=== PATIENT | male | born 1960 | race Caucasian/White ===

== ENCOUNTER 2017-12-01 09:37 | Emergency (ER) | payer MEDICAID ==
[~2017-12-01] VITALS: Ht 170.2 cm; Wt 71.7 kg
[~2017-12-01 09:37] MED LIST: LOPE1TAB46 PO; NAPR-706 PO
[2017-12-01] MEDS ORDERED: PENI250T2 PO (10:05)
[2017-12-01] MEDS ORDERED: HYDR-569 PO (10:05)
[2017-12-01 10:09] VITALS: BP 141/83
== END 2017-12-01 10:10 | disposition home or self-care (01) ==
LOC: ER 09:37
DX: K13.70 Unspecified lesions of oral mucosa (principal); K08.89 Other specified disorders of teeth and supporting structures; G89.29 Other chronic pain; F12.90 Cannabis use, unspecified, uncomplicated; Z59.0 Homelessness; Z56.0 Unemployment, unspecified; Z79.899 Other long term (current) drug therapy
CPT/HCPCS: 99283

== ENCOUNTER 2018-01-16 11:28 | Emergency (ER) | payer MEDICAID ==
[~2018-01-16] VITALS: Ht 170.2 cm; Wt 72.0 kg
[~2018-01-16 11:28] MED LIST changes: +HYDR-569 PO
[2018-01-16 11:37] VITALS: BP 135/88
[2018-01-16] MEDS ORDERED: HYDR-565 PO (13:41)
[2018-01-16] MEDS ORDERED: PENI500T2 PO (13:41)
== END 2018-01-16 13:49 | disposition home or self-care (01) ==
LOC: ER 11:29
DX: C06.9 Malignant neoplasm of mouth, unspecified (principal); K13.79 Other lesions of oral mucosa; F12.10 Cannabis abuse, uncomplicated; G89.29 Other chronic pain; Z87.891 Personal history of nicotine dependence; Z59.0 Homelessness; Z56.0 Unemployment, unspecified
CPT/HCPCS: 99283

== ENCOUNTER 2018-01-25 19:13 | Emergency (ER) | payer MEDICAID ==
[~2018-01-25] VITALS: Ht 170.2 cm; Wt 68.5 kg
[~2018-01-25 19:13] MED LIST changes: +HYDR-565 PO; +PENI500T2 PO
[2018-01-25 19:33] VITALS: BP 147/80
== END 2018-01-25 22:32 | disposition left against medical advice (07) ==
LOC: ER 19:13
DX: K59.00 Constipation, unspecified (principal); Z53.21 Procedure and treatment not carried out due to patient leaving prior to being seen by health care provider

== ENCOUNTER 2018-03-15 10:57 | Day surgery (SDC) | payer MEDICAID ==
[~2018-03-15] VITALS: Ht 170.2 cm; Wt 67.3 kg
[2018-03-15] VITALS (8 sets, daily range): BP systolic 102–131; BP diastolic 45–77
[~2018-03-15 10:57] MED LIST changes: -HYDR-565 PO; -PENI500T2 PO
[2018-03-15] MEDS ORDERED: normal saline 1000ml 1,000 ML IV PRN (11:20)
[2018-03-15 11:41] LABS: BASOPHILS # (AUTO) 0.1 X10'3 (0-0.2); BASOPHILS % (AUTO) 1.2 % (0-1); EOSINOPHILS # (AUTO) 0.2 X10'3 (0-0.9); EOSINOPHILS % (AUTO) 3.6 % (0-6); HEMOGLOBIN 14.6 g/dl (14.0-17.9); LYMPHOCYTES # (AUTO) 1.6 X10'3 (1.1-4.8); LYMPHOCYTES % (AUTO) 38.5 % (21-51); MEAN CORPUSCULAR HGB CONC 34.7 % (33.0-36.5); MEAN PLATELET VOLUME 8.7 FL (7.4-10.4); MONOCYTES # (AUTO) 0.6 X10'3 (0-0.9); MONOCYTES % (AUTO) 14.3 % (2-12); NEUTROPHILS # (AUTO) 1.8 X10'3 (1.8-7.7); NEUTROPHILS % (AUTO) 42.4 % (42-75); PLATELET COUNT 103 X10'3 (140-440); RED BLOOD COUNT 4.29 X10'6 (4.70-6.10); RED CELL DISTRIBUTION WIDTH 16.2 % (11.5-14.5); WHITE BLOOD COUNT 4.2 X10'3 (4.5-11.0)
[2018-03-15] MEDS ORDERED: MORP15TA PO (11:53)
[2018-03-15] MEDS ORDERED: MAGIC MOUTHWASH PO (11:53)
[2018-03-15] MEDS ORDERED: HYDR-565 PO (11:53)
[2018-03-15] MEDS ORDERED: fentaNYL/PF 50MCG/1 ML 2ML syringe IV PRN (12:00)
[2018-03-15] MEDS ORDERED: heparin sodium, porcine/PF 100unit/ml 5ML syringe ICATH ONE (12:00)
[2018-03-15] MEDS ORDERED: glucagon, human recombinant 1mg kit IV ONE (12:00)
[2018-03-15] MEDS ORDERED: midazolam 2 mg/2 ml injection IV PRN (12:00)
[2018-03-15] MEDS ORDERED: ceFAZolin 2gm in dextrose, iso 100 ML IV ONE (12:00)
[2018-03-15] MEDS ORDERED: LIDOcaine 1%/PF (10mg/ml) 5ml vial SQ ONE (12:00)
[2018-03-15] MEDS ORDERED: LIDOcaine 1%/PF (10mg/ml) 5ml vial ONE (12:17)
[2018-03-15] MEDS ORDERED: iohexol 300 MG/1 ML 50ml polymer ONE (12:17)
[2018-03-15] MEDS ORDERED: heparin sodium, porcine/PF 100unit/ml 5ML syringe ONE (12:25)
[2018-03-15] MEDS ORDERED: midazolam 2 mg/2 ml injection ONE (12:25)
[2018-03-15] MEDS ORDERED: glucagon, human recombinant 1mg kit ONE (12:25)
[2018-03-15] MEDS ORDERED: fentaNYL/PF 50MCG/1 ML 2ML syringe ONE (12:25)
[2018-03-15] MEDS ORDERED: zinc oxide ointment 30gm tube TP PRN (12:50)
[2018-03-15] MEDS ORDERED: ondansetron/PF 4mg/2ml inj ONE (13:01)
== END 2018-03-15 16:20 | disposition home or self-care (01) ==
LOC: SSTAY O 10:57
PROVIDERS: ATTEND Radiology Vascular & Interventional Radiology
DX: C76.0 Malignant neoplasm of head, face and neck (principal); F17.210 Nicotine dependence, cigarettes, uncomplicated; F10.21 Alcohol dependence, in remission; F12.90 Cannabis use, unspecified, uncomplicated; Z85.810 Personal history of malignant neoplasm of tongue; Z79.891 Long term (current) use of opiate analgesic; Z85.818 Personal history of malignant neoplasm of other sites of lip, oral cavity, and pharynx; Z98.890 Other specified postprocedural states
CPT/HCPCS: 36415; 36561; 49440; 76937; 77001; 85025; 99152; 99153; A6219; A6449; C1729; C1788; C1894; J0690; J1610; J1642; J2001; J2250; J2405; J3010; J7030; Q9967; A4620

== ENCOUNTER 2018-03-16 17:16 | Emergency (ER) | payer MEDICAID ==
[~2018-03-16] VITALS: Ht 170.2 cm; Wt 68.2 kg
[~2018-03-16 17:16] MED LIST changes: +HYDR-565 PO; +MAGIC MOUTHWASH PO; +MORP15TA PO
[2018-03-16 20:47] VITALS: BP 125/65
== END 2018-03-16 21:11 | disposition home or self-care (01) ==
LOC: ER 17:18
DX: K94.23 Gastrostomy malfunction (principal); G89.29 Other chronic pain; F12.90 Cannabis use, unspecified, uncomplicated; Z86.19 Personal history of other infectious and parasitic diseases; Z98.890 Other specified postprocedural states; Z56.0 Unemployment, unspecified; Z59.0 Homelessness; Z79.899 Other long term (current) drug therapy; Z85.9 Personal history of malignant neoplasm, unspecified
CPT/HCPCS: 99281

== ENCOUNTER 2018-04-18 | Emergency (ER) | payer MEDICAID ==
[~2018-04-18] VITALS: Ht 170.2 cm; Wt 81.0 kg
[~2018-04-18] MED LIST changes: -HYDR-569 PO; -LOPE1TAB46 PO; -NAPR-706 PO
[2018-04-18 00:57] VITALS: BP 145/88
== END 2018-04-18 02:30 | disposition home or self-care (01) ==
LOC: ER
DX: K94.23 Gastrostomy malfunction (principal); G89.29 Other chronic pain; F12.90 Cannabis use, unspecified, uncomplicated; Z56.0 Unemployment, unspecified; Z59.0 Homelessness; Z98.890 Other specified postprocedural states
CPT/HCPCS: 43760; 99284